=== PATIENT | male | born 1935 | race Caucasian/White ===

== ENCOUNTER 2020-12-12 15:30 | Emergency (ER) | payer OTHER, SELFPAY ==
--- NOTE | ~2020-12-12 | CT_ITS ---
EXAMINATION: CT HEAD WITHOUT CONTRAST CLINICAL INFORMATION: Near syncope, dizziness, vomiting COMPARISON: None TECHNIQUE: Contiguous axial imaging was performed from the skull base to vertex without intravenous administration of contrast. This CT examination was performed using dose optimization techniques as appropriate, variously including the following: *Automated exposure control *Adjustment of mA and/or kV according to patient size (this includes techniques or standardized protocols for targeted exams where dose is matched to indication/reason for exam; i.e. extremities or head) *Use of iterative reconstruction technique DLP: 790 mGy-cm FINDINGS: There is no evidence of acute intracranial hemorrhage or territorial infarction. No abnormal mass effect or midline shift is seen. [place] to white matter differentiation is well preserved. No extra-axial fluid collections are identified. The ventricles are normal in size. There is no abnormal attenuation within the brain parenchyma. The osseous structures and soft tissues are normal. The mastoid air cells and visualized portions of the paranasal sinuses are well aerated. CT/CT head/brain wo con IMPRESSION: No acute intracranial pathology.
[2020-12-12 15:46] VITALS: BP 166/88; PULSE 82; O2SAT 97
[2020-12-12 15:59] VITALS: BP 146/67; PULSE 69; RESP 18; TEMP 36.6; O2SAT 98; BMI 24.8
--- NOTE | 2020-12-12 15:59 | ECG_ITS ---
Test Reason : dizzyness Blood Pressure : / mmHG Vent. Rate : 069 BPM Atrial Rate : 069 BPM P-R Int : 230 ms QRS Dur : 090 ms QT Int : 406 ms P-R-T Axes : 045 -16 054 degrees QTc Int : 435 ms Sinus rhythm with 1st degree A-V block with occasional Premature ventricular complexes Minimal voltage criteria for LVH, may be normal variant ( R in aVL ) Abnormal ECG No previous ECGs available Referred By: Yany Ricketts Electronically Signed By:ROSALINDA PANDYA MD
--- NOTE | 2020-12-12 16:00 | ED_ITS ---
HPI - Dizziness General Chief Complaint: Nausea/Vomiting/Diarrhea <SUMANTH Toney Last Filed: 12/12/20 16:52> Stated Complaint: Dizziness and vomiting <SUMANTH Toney Last Filed: 12/12/20 16:52> Time Seen by Provider: 12/12/20 15:44 <SUMANTH Toney Last Filed: 12/12/20 16:52> Source: patient and EMS <SUMANTH Toney Last Filed: 12/12/20 16:52> Mode of arrival: EMS <SUMANTH Toney Last Filed: 12/12/20 16:52> Limitations: no limitations <SUMANTH Toney Last Filed: 12/12/20 16:52> History of Present Illness HPI Narrative: 85 y/o male with history of HTN, BPH, HLD who presents to the ER via EMS after he had acute onset of dizziness and not feeling well while he was standing and looking at books at the library. He reports after walking around the library for 15 minutes or so he all off the sudden felt dizzy, lightheaded, and nauseous. He felt unsteady and closed his eyes. EMS was called and he was diaphoretic and vomited. He was given Zofran and IVF en route and felt much better. He denies any prior episodes like this before. He took all of his morning medications as directed. He ate a late breakfast but did not eat lunch. <SUMANTH Toney Last Filed: 12/12/20 16:52> MD elicited complaint: dizziness, lightheadedness and near syncope <SUMANTH Toney Last Filed: 12/12/20 16:52> Onset (ago): minute(s) <SUMANTH Toney Last Filed: 12/12/20 16:52> Timing: sudden onset <SUMANTH Toney Last Filed: 12/12/20 16:52> Severity: severe <SUMANTH Toney Last Filed: 12/12/20 16:52> Description: lightheadedness, off-balance and near-syncope <SUMANTH Toney Last Filed: 12/12/20 16:52> History of similar symptoms: No <SUMANTH Toney Last Filed: 12/12/20 16:52> Exacerbating factors: movement/ambulation and change in body position <SUMANTH Toney Last Filed: 12/12/20 16:52> Relieving factors: rest and keeping eyes closed <SUMANTH Toney Last Filed: 12/12/20 16:52> Associated symptoms: nausea, vomiting, diaphoresis and weakness <SUMANTH Toney Last Filed: 12/12/20 16:52> Related Data Home Medications: Home Medications Medication Instructions Recorded Confirmed diltiazem HCl 180 mg 180 mg PO DAILY 12/12/20 12/12/20 capsule,extended release 24 hr (Cardizem CD) ferrous sulfate 325 mg (65 mg 325 mg PO DAILY 12/12/20 12/12/20 iron) tablet finasteride 5 mg tablet 5 mg PO DAILY 12/12/20 12/12/20 gemfibrozil 600 mg tablet 600 mg PO BID 12/12/20 12/12/20 hydrochlorothiazide 25 mg tablet 25 mg PO DAILY 12/12/20 12/12/20 losartan 25 mg tablet 25 mg PO BID 12/12/20 12/12/20 multivitamin 1 tab PO DAILY 12/12/20 12/12/20 omega-3 fatty acids-vitamin E 1 cap PO BID 12/12/20 12/12/20 1,000 mg capsule <SUMANTH Toney Last Filed: 12/12/20 16:52> Allergies/Adverse Reactions: Allergies Allergy/AdvReac Type Severity Reaction Status Date / Time Unable to Assess Allergy Unverified 12/12/20 15:59 <SUMANTH Toney Last Filed: 12/12/20 16:52> Review of Systems Review of Systems: Constitutional: No Fever, No Chills ENT/Mouth: No sore throat, No Rhinorrhea, No Swallowing Difficulty Eyes: No Eye Pain, No Swelling, No Redness, No vision changes Cardiovascular: No Chest Pain, No SOB, No Orthopnea, No Edema Respiratory: No Cough, No Sputum, No Wheezing, No dyspnea Gastrointestinal: + Nausea, + Vomiting, No Diarrhea, No abdominal Pain Genitourinary: No Dysuria, No Urinary Frequency, No Hematuria Musculoskeletal: No joint pain, No Myalgias Skin: No Skin Lesions, No rash Neuro: + Weakness (generalized), No Numbness, + Dizziness, No Headache Psych: No Anxiety/Panic, No Depression Heme/Lymph: No Bruising, No Lymphadenopathy Endocrine: No Polyuria, No Polydipsia <SUMANTH Toney - Last Filed: 12/12/20 16:52> [facility] Past Medical History Medical History: Medical History (Updated 12/12/20 @ 16:52 by SUMANTH Toney) HTN (hypertension) <SUMANTH Toney - Last Filed: 12/12/20 16:52> Social History Social History: Social History Alcohol intake: never Patient Tobacco Use Status: Never used Tobacco Use of substances other than those prescribed or required for medical reasons: No Advance Directives: No Advance Directives Information Provided: No <SUMANTH Toney - Last Filed: 12/12/20 16:52> Physical Exam Vital Signs: Vital Signs: Last Vital Signs Temp 98.3 F 12/12/20 19:24 Pulse 66 12/12/20 19:24 Resp 14 12/12/20 19:24 BP 165/71 H 12/12/20 19:24 Pulse Ox 98 12/12/20 19:24 Body Mass Index 24.8 <SUMANTH Toney - Last Filed: 12/12/20 16:52> Vital Signs: Last Vital Signs Temp 98.3 F 12/12/20 19:24 Pulse 66 12/12/20 19:24 Resp 14 12/12/20 19:24 BP 165/71 H 12/12/20 19:24 Pulse Ox 98 12/12/20 19:24 Body Mass Index 24.8 <SUMANTH Carreon - Last Filed: 12/12/20 20:57> Appearance: Alert. Oriented X3. No acute distress. Eyes: Pupils equal, round and reactive to light. ENT: Pharynx normal. Neck: Normal inspection. Neck supple. CVS: Normal heart rate and rhythm. Pulses normal. Respiratory: No respiratory distress. Breath sounds normal. Abdomen: Soft and nontender. +BS x4 Skin: Skin warm and dry. Normal skin color. Normal skin turgor. No rashes. Extremities: No lower extremity edema. Neuro: Oriented X 3. No motor deficit. No sensory deficit. Nonfocal, Equal and symmetrical strength throughout. Normal heel to strong and finger to nose bilaterally. <SUMANTH Toney - Last Filed: 12/12/20 16:52> NIH Stroke Scale Internal: Initial- Upon Arrival <SUMANTH Toney - Last Filed: 12/12/20 16:52> Level of Consciousness: Alert <SUMANTH Toney - Last Filed: 12/12/20 16:52> Level of Consciousness Questions: Answers both questions correctly <SUMANTH Toney - Last Filed: 12/12/20 16:52> Level of Consciousness Commands: Performs both tasks correctly <SUMANTH Toney - Last Filed: 12/12/20 16:52> Best Gaze: Normal <SUMANTH Toney - Last Filed: 12/12/20 16:52> Visual: No visual loss <SUMANTH Toney - Last Filed: 12/12/20 16:52> Facial Palsy: Normal <SUMANTH Toney - Last Filed: 12/12/20 16:52> Motor Arm (Right): No drift <SUMANTH Toney - Last Filed: 12/12/20 16:52> Motor Arm (Left): No drift <SUMANTH Toney - Last Filed: 12/12/20 16:52> Motor Leg (Right): No drift <SUMANTH Toney - Last Filed: 12/12/20 16:52> Motor Leg (Left): No drift <SUMANTH Toney - Last Filed: 12/12/20 16:52> Limb Ataxia: Absent <SUMANTH Toney - Last Filed: 12/12/20 16:52> Sensory: Normal <SUMANTH Toney - Last Filed: 12/12/20 16:52> Best Language: No aphasia <SUMANTH Toney - Last Filed: 12/12/20 16:52> Dysarthia: Normal <SMUANTH Toney - Last Filed: 12/12/20 16:52> Extinction and Inattention: No abnormality <SUMANTH Toney - Last Filed: 12/12/20 16:52> Score: 0 <SUMANTH Toney Last Filed: 12/12/20 16:52> 0 <SUMANTH Carreon Last Filed: 12/12/20 20:57> Course Course Course Narrative: 85-year-old male with history of hypertension, hyperlipidemia and BPH presents to the ER with acute onset of dizziness, nausea, diaphoresis and vomiting while standing at the library today. Clinical presentation consistent with presyncope. May need to rule out posterior stroke, his neuro exam is completely nonfocal at this time however he does still have some ongoing dizziness when he sits up and does not feel well. Will check orthostatic vital signs basic lab workup, head CT, EKG. Dispo pending results and improvement. <SUMANTH Toney Last Filed: 12/12/20 16:52> Reevaluation(s) Reevaluation #1: Orthostatic vital signs are negative. Troponin is negative. EKG does not show any ischemic changes. Rest of his workup is pending including his head CT. Will sign out to Dorina Gonzalez PA-C who will assume care. <SUMANTH Toney Last Filed: 12/12/20 16:52> Reevaluation #2: Head CT unremarkable. On my re-evaluation patient reports symptomatic improvement, denies lightheadedness/dizziness now, denies headache, CP/SOB. Discussed with patient recommended admission for likely MRI in the morning, patient would like to go home, is not agreeable to admission, however is agreeable to repeat troponin to rule out ACS. Plan to repeat troponin at 7:18 p.m. and ambulate in the ED, if negative/ambulates safely will DC home with PCP follow-up <SUMANTH Carreon Last Filed: 12/12/20 20:57> Time: 18:06 <SUMANTH Carreon Last Filed: 12/12/20 20:57> Reevaluation #3: Repeat troponin 8.4, technically 50% rise, case discussed with cardiology Dr. Lewis, PA unlikely. Case discussed with hospitalist for admission, hospitalist evaluated patient, and do not deem admission necessary at this time. Patient is asymptomatic, reports symptomatic improvement since ED arrival, feels safe for discharge home at this time <SUMANTH Carreon Last Filed: 12/12/20 20:57> Time: 20:54 <SUMANTH Carreon - Last Filed: 12/12/20 20:57> MDM - Dizziness Lab Data Attestation: I reviewed the patient's lab results. <SUMANTH Toney - Last Filed: 12/12/20 16:52> Result diagrams: : 12/12/20 16:18 12/12/20 16:18 <SUMANTH Toney - Last Filed: 12/12/20 16:52> Labs: Lab Results 12/12/20 12/12/20 12/12/20 Range/Units 16:18 16:18 16:18 WBC 6.6 (4.8-10.8) X10*3/uL RBC 4.25 L (4.60-5.80) X10*6/uL Hgb 12.7 L (14.0-18.0) g/dl Hct 37.6 L (42-52) % MCV 88.5 (80-98) fL MCH 29.9 (27.0-33.0) pg MCHC 33.8 (31.0-36.0) g/dl RDW 13.1 (11.0-16.0) % Plt Count 294 (160-400) X10*3/uL MPV 9.1 L (9.4-12.4) fL Immature Gran % (Auto) 0.6 H (0.0-0.4) % Neut % (Auto) 63.5 (45-73) % Lymph % (Auto) 24.7 (20-40) % [place] % (Auto) 7.8 (2-11) % Eos % (Auto) 2.9 (0-4) % Baso % (Auto) 0.5 (0-2) % Lymph # (Auto) 1.6 (1.2-4.9) X10*3/uL [place] # (Auto) 0.5 (0.1-1.2) X10*3/uL Eos # (Auto) 0.2 (0.0-0.4) X10*3/uL Baso # (Auto) 0.0 (0.0-0.2) X10*3/uL Abs Immat Gran (auto) 0.04 H (0.00-0.03) X10*3/uL Absolute Neuts (auto) 4.2 (2.0-8.3) X10*3/uL Absolute Nucleated RBC 0.000 (0.0-0.012) X10*3/uL Nucleated RBC % (auto) 0.0 (0.0-0.2) /100WBC Sodium 143 (135-145) mmol/L Potassium 3.4 (3.3-5.1) mmol/L Chloride 107 (96-108) mmol/L Carbon Dioxide 26 (22-29) mmol/L Anion Gap 13 (12-20) BUN 26 H (9-16) mg/dL Creatinine 1.27 (0.5-1.4) mg/dL Estim Creat Clear Calc 45.2 Estimated GFR 54 Random Glucose 114 (60-115) mg/dL Calcium 9.3 (8.4-10.2) mg/dL Magnesium 2.2 (1.6-2.6) mg/dL Total Bilirubin 0.3 (0.0-1.0) mg/dL Direct Bilirubin 0.2 (0.0-0.5) mg/dL AST 17 (5-37) U/L ALT 11 (0-40) U/L Alkaline Phosphatase 79 (39-117) U/L Troponin I High Sens 4.9 (<3.5-35.0) ng/L Total Protein 6.5 (6.5-8.0) g/dL Albumin 4.2 (3.5-5.0) g/dL Urine Color Urine Appearance Urine pH (5.0-8.0) Ur Specific [place] (1.005-1.025) Urine Protein (NEG-TRACE) MG/DL Urine Glucose (UA) (NEG) MG/DL Urine Ketones (NEG) MG/DL Urine Blood (NEG) Urine Nitrite (NEG) Ur Leukocyte Esterase (NEG) Urine RBC (0) /HPF Urine WBC (0-4) /HPF Ur Squamous Epith Cells /LPF Urine Bacteria /LPF Urine Mucus /LPF COVID-19 (KRISTOPHER) (Negative) COVID-19 Clin Com 12/12/20 12/12/20 12/12/20 Range/Units 16:34 16:34 19:23 WBC (4.8-10.8) X10*3/uL RBC (4.60-5.80) X10*6/uL Hgb (14.0-18.0) g/dl Hct (42-52) % MCV (80-98) fL MCH (27.0-33.0) pg MCHC (31.0-36.0) g/dl RDW (11.0-16.0) % Plt Count (160-400) X10*3/uL MPV (9.4-12.4) fL Immature Gran % (Auto) (0.0-0.4) % Neut % (Auto) (45-73) % Lymph % (Auto) (20-40) % [place] % (Auto) (2-11) % Eos % (Auto) (0-4) % Baso % (Auto) (0-2) % Lymph # (Auto) (1.2-4.9) X10*3/uL [place] # (Auto) (0.1-1.2) X10*3/uL Eos # (Auto) (0.0-0.4) X10*3/uL Baso # (Auto) (0.0-0.2) X10*3/uL Abs Immat Gran (auto) (0.00-0.03) X10*3/uL Absolute Neuts (auto) (2.0-8.3) X10*3/uL Absolute Nucleated RBC (0.0-0.012) X10*3/uL Nucleated RBC % (auto) (0.0-0.2) /100WBC Sodium (135-145) mmol/L Potassium (3.3-5.1) mmol/L Chloride (96-108) mmol/L Carbon Dioxide (22-29) mmol/L Anion Gap (12-20) BUN (9-16) mg/dL Creatinine (0.5-1.4) mg/dL Estim Creat Clear Calc Estimated GFR Random Glucose (60-115) mg/dL Calcium (8.4-10.2) mg/dL Magnesium (1.6-2.6) mg/dL Total Bilirubin (0.0-1.0) mg/dL Direct Bilirubin (0.0-0.5) mg/dL AST (5-37) U/L ALT (0-40) U/L Alkaline Phosphatase (39-117) U/L Troponin I High Sens 8.4 D (<3.5-35.0) ng/L Total Protein (6.5-8.0) g/dL Albumin (3.5-5.0) g/dL Urine Color YELLOW Urine Appearance HAZY Urine pH 7.0 (5.0-8.0) Ur Specific [place] 1.015 (1.005-1.025) Urine Protein NEG (NEG-TRACE) MG/DL Urine Glucose (UA) NEG (NEG) MG/DL Urine Ketones NEG (NEG) MG/DL Urine Blood 1+ H (NEG) Urine Nitrite NEG (NEG) Ur Leukocyte Esterase NEG (NEG) Urine RBC 5-9 H (0) /HPF Urine WBC 0 (0-4) /HPF Ur Squamous Epith Cells TRACE /LPF Urine Bacteria NONE /LPF Urine Mucus TRACE /LPF COVID-19 (KRISTOPHER) Negative (Negative) COVID-19 Clin Com See Note <SUMANTH Toney - Last Filed: 12/12/20 16:52> Lab Results 12/12/20 12/12/20 12/12/20 Range/Units 16:18 16:18 16:18 WBC 6.6 (4.8-10.8) X10*3/uL RBC 4.25 L (4.60-5.80) X10*6/uL Hgb 12.7 L (14.0-18.0) g/dl Hct 37.6 L (42-52) % MCV 88.5 (80-98) fL MCH 29.9 (27.0-33.0) pg MCHC 33.8 (31.0-36.0) g/dl RDW 13.1 (11.0-16.0) % Plt Count 294 (160-400) X10*3/uL MPV 9.1 L (9.4-12.4) fL Immature Gran % (Auto) 0.6 H (0.0-0.4) % Neut % (Auto) 63.5 (45-73) % Lymph % (Auto) 24.7 (20-40) % [place] % (Auto) 7.8 (2-11) % Eos % (Auto) 2.9 (0-4) % Baso % (Auto) 0.5 (0-2) % Lymph # (Auto) 1.6 (1.2-4.9) X10*3/uL [place] # (Auto) 0.5 (0.1-1.2) X10*3/uL Eos # (Auto) 0.2 (0.0-0.4) X10*3/uL Baso # (Auto) 0.0 (0.0-0.2) X10*3/uL Abs Immat Gran (auto) 0.04 H (0.00-0.03) X10*3/uL Absolute Neuts (auto) 4.2 (2.0-8.3) X10*3/uL Absolute Nucleated RBC 0.000 (0.0-0.012) X10*3/uL Nucleated RBC % (auto) 0.0 (0.0-0.2) /100WBC Sodium 143 (135-145) mmol/L Potassium 3.4 (3.3-5.1) mmol/L Chloride 107 (96-108) mmol/L Carbon Dioxide 26 (22-29) mmol/L Anion Gap 13 (12-20) BUN 26 H (9-16) mg/dL Creatinine 1.27 (0.5-1.4) mg/dL Estim Creat Clear Calc 45.2 Estimated GFR 54 Random Glucose 114 (60-115) mg/dL Calcium 9.3 (8.4-10.2) mg/dL Magnesium 2.2 (1.6-2.6) mg/dL Total Bilirubin 0.3 (0.0-1.0) mg/dL Direct Bilirubin 0.2 (0.0-0.5) mg/dL AST 17 (5-37) U/L ALT 11 (0-40) U/L Alkaline Phosphatase 79 (39-117) U/L Troponin I High Sens 4.9 (<3.5-35.0) ng/L Total Protein 6.5 (6.5-8.0) g/dL Albumin 4.2 (3.5-5.0) g/dL Urine Color Urine Appearance Urine pH (5.0-8.0) Ur Specific [place] (1.005-1.025) Urine Protein (NEG-TRACE) MG/DL Urine Glucose (UA) (NEG) MG/DL Urine Ketones (NEG) MG/DL Urine Blood (NEG) Urine Nitrite (NEG) Ur Leukocyte Esterase (NEG) Urine RBC (0) /HPF Urine WBC (0-4) /HPF Ur Squamous Epith Cells /LPF Urine Bacteria /LPF Urine Mucus /LPF COVID-19 (KRISTOPHER) (Negative) COVID-19 Clin Com 12/12/20 12/12/20 12/12/20 Range/Units 16:34 16:34 19:23 WBC (4.8-10.8) X10*3/uL RBC (4.60-5.80) X10*6/uL Hgb (14.0-18.0) g/dl Hct (42-52) % MCV (80-98) fL MCH (27.0-33.0) pg MCHC (31.0-36.0) g/dl RDW (11.0-16.0) % Plt Count (160-400) X10*3/uL MPV (9.4-12.4) fL Immature Gran % (Auto) (0.0-0.4) % Neut % (Auto) (45-73) % Lymph % (Auto) (20-40) % [place] % (Auto) (2-11) % Eos % (Auto) (0-4) % Baso % (Auto) (0-2) % Lymph # (Auto) (1.2-4.9) X10*3/uL [place] # (Auto) (0.1-1.2) X10*3/uL Eos # (Auto) (0.0-0.4) X10*3/uL Baso # (Auto) (0.0-0.2) X10*3/uL Abs Immat Gran (auto) (0.00-0.03) X10*3/uL Absolute Neuts (auto) (2.0-8.3) X10*3/uL Absolute Nucleated RBC (0.0-0.012) X10*3/uL Nucleated RBC % (auto) (0.0-0.2) /100WBC Sodium (135-145) mmol/L Potassium (3.3-5.1) mmol/L Chloride (96-108) mmol/L Carbon Dioxide (22-29) mmol/L Anion Gap (12-20) BUN (9-16) mg/dL Creatinine (0.5-1.4) mg/dL Estim Creat Clear Calc Estimated GFR Random Glucose (60-115) mg/dL Calcium (8.4-10.2) mg/dL Magnesium (1.6-2.6) mg/dL Total Bilirubin (0.0-1.0) mg/dL Direct Bilirubin (0.0-0.5) mg/dL AST (5-37) U/L ALT (0-40) U/L Alkaline Phosphatase (39-117) U/L Troponin I High Sens 8.4 D (<3.5-35.0) ng/L Total Protein (6.5-8.0) g/dL Albumin (3.5-5.0) g/dL Urine Color YELLOW Urine Appearance HAZY Urine pH 7.0 (5.0-8.0) Ur Specific [place] 1.015 (1.005-1.025) Urine Protein NEG (NEG-TRACE) MG/DL Urine Glucose (UA) NEG (NEG) MG/DL Urine Ketones NEG (NEG) MG/DL Urine Blood 1+ H (NEG) Urine Nitrite NEG (NEG) Ur Leukocyte Esterase NEG (NEG) Urine RBC 5-9 H (0) /HPF Urine WBC 0 (0-4) /HPF Ur Squamous Epith Cells TRACE /LPF Urine Bacteria NONE /LPF Urine Mucus TRACE /LPF COVID-19 (KRISTOPHER) Negative (Negative) COVID-19 Clin Com See Note <SUMANTH Carreon - Last Filed: 12/12/20 20:57> ECG Data Attestation: I personally reviewed and interpreted this ECG as follows: <SUMANTH Toney - Last Filed: 12/12/20 16:52> ECG interpretation date: 12/12/20 <SUMANTH Toney - Last Filed: 12/12/20 16:52> ECG interpretation time: 16:44 <SUMANTH Toney - Last Filed: 12/12/20 16:52> Interpretation: Sinus rhythm with first-degree AV block, HR 69 BPM, KS interval 230ms, occasional PVC's, no ST segment elevations or depression <SUMANTH Toney - Last Filed: 12/12/20 16:52> Discharge Plan Discharge Clinical Impression: Pre-syncope <SUMANTH Toney - Last Filed: 12/12/20 16:52> Patient Disposition: Home, Self-Care <SUMANTH Toney - Last Filed: 12/12/20 16:52> Instructions: Near Syncope (ED) <SUMANTH Toney - Last Filed: 12/12/20 16:52> Additional Instructions: Your blood work and head CT were reassuring today in the emergency department It is very important that you are staying hydrated at home Call your primary care doctor for close follow-up If her symptoms recur, persist, you develop lightheadedness, dizziness, shortness of breath, chest pain, nausea, or vomiting return to the ED immediately <SUMANTH Toney - Last Filed: 12/12/20 16:52> Prescriptions: No Action diltiazem HCl [Cardizem CD] 180 mg Capsule,Extended Release 24hr 180 mg PO DAILY RF: 0 gemfibrozil 600 mg Tablet 600 mg PO BID RF: 0 losartan 25 mg Tablet 25 mg PO BID RF: 0 hydrochlorothiazide 25 mg Tablet 25 mg PO DAILY RF: 0 finasteride 5 mg Tablet 5 mg PO DAILY RF: 0 multivitamin [Multi-Daily] Tablet 1 tab PO DAILY RF: 0 ferrous sulfate 325 mg (65 mg iron) Tablet 325 mg PO DAILY RF: 0 Fish Oil 1,000 mg Capsule 1 cap PO BID RF: 0 <SUMANTH Toney - Last Filed: 12/12/20 16:52> Referrals: Branden Johnson MD [Primary Care Provider] - 2 days <SUMANTH Toney - Last Filed: 12/12/20 16:52>
[2020-12-12] MEDS: 0.9 % Sodium Chloride 1,000 ML 999 ML IVCONT (16:21)
[2020-12-12 16:26] LABS: MANUAL DIFF FLAG NO
[2020-12-12 16:27] LABS: Basophils Percent Auto 0.5 % (0-2); Eosinophils Absolute Auto 0.2 X10*3/uL (0.0-0.4); Eosinophils Percent Auto 2.9 % (0-4); Hematocrit 37.6 % (42-52); Hemoglobin 12.7 g/dl (14.0-18.0); Imm Gran Abs Auto 0.04 X10*3/uL (0.00-0.03); Imm Gran Pct Auto 0.6 % (0.0-0.4); Lymphocytes Absolute Auto 1.6 X10*3/uL (1.2-4.9); Lymphocytes Percent Auto 24.7 % (20-40); Mean Corpuscular HGB Conc 33.8 g/dl (31.0-36.0); Mean Corpuscular Hemoglobin 29.9 pg (27.0-33.0); Mean Corpuscular Volume 88.5 fL (80-98); Mean Platelet Volume 9.1 fL (9.4-12.4); Monocytes Absolute Auto 0.5 X10*3/uL (0.1-1.2); Monocytes Percent Auto 7.8 % (2-11); Neutrophils Absolute Auto 4.2 X10*3/uL (2.0-8.3); Neutrophils Percent Auto 63.5 % (45-73); Platelet Count 294 X10*3/uL (160-400); Red Blood Count 4.25 X10*6/uL (4.60-5.80); Red Cell Distribution Width 13.1 % (11.0-16.0); White Blood Count 6.6 X10*3/uL (4.8-10.8)
[2020-12-12 16:37] VITALS: BP 142/68; PULSE 72
[2020-12-12 16:38] VITALS: BP 153/74; BP 156/75; PULSE 75; PULSE 82
[2020-12-12 16:40] VITALS: BP 142/68; PULSE 76; RESP 16; TEMP 36.6; O2SAT 97
[2020-12-12 16:42] LABS: Alanine Aminotransferase 11 U/L (0-40); Albumin Level 4.2 g/dL (3.5-5.0); Alkaline Phosphatase 79 U/L (39-117); Anion Gap 13 (12-20); Aspartate Amino Transferase 17 U/L (5-37); Bilirubin Direct 0.2 mg/dL (0.0-0.5); Bilirubin Total 0.3 mg/dL (0.0-1.0); Blood Urea Nitrogen 26 mg/dL (9-16); Calcium 9.3 mg/dL (8.4-10.2); Carbon Dioxide 26 mmol/L (22-29); Chloride 107 mmol/L (96-108); Creatinine Clr Calc Pharmacy 45.2; Estimated Glomerular Filt Rate 54; Glucose Random 114 mg/dL (60-115); Magnesium 2.2 mg/dL (1.6-2.6); Potassium 3.4 mmol/L (3.3-5.1); Sodium 143 mmol/L (135-145); Total Protein 6.5 g/dL (6.5-8.0)
[2020-12-12 16:46] LABS: Troponin-I High Sensitivity 4.9 ng/L (<3.5-35.0)
[2020-12-12 16:46] LABS: Appearance Urine HAZY; Color Urine YELLOW; Glucose Urine UA NEG (NEG); Leukocyte Esterase Urine NEG (NEG); Nitrite Urine NEG (NEG); Specific Gravity - Urine 1.015 (1.005-1.025); UACC Culture Trigger NO; Urine Blood 1+ (NEG); Urine Ketones NEG (NEG); Urine Protein NEG (NEG-TRACE)
[2020-12-12 16:55] LABS: Mucus Urine TRACE /LPF; Squamous Epithelial Cell Urine TRACE /LPF
[2020-12-12 16:56] LABS: WBC Urine 0 /HPF (0-4)
[2020-12-12 17:02] LABS: COVID-19 Test Negative (Negative)
[2020-12-12 19:24] VITALS: BP 165/71; PULSE 66; RESP 14; TEMP 36.8; O2SAT 98
[2020-12-12 19:55] LABS: Troponin-I High Sensitivity 8.4 ng/L (<3.5-35.0)
--- NOTE | 2020-12-12 21:11 | PM.EVENT ---
Event Note Date of Service: 12/12/20 Event Note: Asked to admit this pleasant 85-year-old male for presyncope. 85-year-old male with past medical history of hyperlipidemia as well as hypertension who presents to the hospital after a presyncopal episode. Patient reports that he went for a 2 mi walk which ended up leading him to the library, he was walking around the library about 15-20 minutes, standing and looking at books when all of a sudden he became diaphoretic, dizzy, had nausea and 1 episode of vomiting and therefore called EMS. Patient denied having any chest pain, no palpitations, no loss of vision, no loss of consciousness, denies having any shortness of breath. Patient reports no numbness tingling or weakness in upper or lower extremities. Denies any previous similar episode. Patient reports that he usually bikes about 10-20 miles every other day with no chest pain or palpitations or any difficulty. He is usually very active and has not had any history of heart disease. Patient is a nonsmoker, denies using any alcohol or drugs. Patient reports that he did not eat anything from 9:00 a.m. and this occurred around 2-3 pm Patient's vitals unremarkable, with a blood pressure of 165/71, pulse of 66, satting 98% on room air Labs reviewed show no significant abnormality with no significant elevation in troponin, UA is negative, head CTs reviewed negative, EKG shows no ischemic changes or arrhythmia. Orthostatic vitals negative. After careful review of his vitals, labs, imaging, and EKG as well as based on patient's wishes I do not feel that the patient needs admission and recommended follow-up with his PCP as soon as possible which patient is agreeable to. I discussed this with the ED
== END 2020-12-12 21:13 | disposition home or self-care (01) ==
PROVIDERS: Physician Assistant; Emergency Provider Emergency Medicine; PCP Internal Medicine
DX: R55 Syncope and collapse (principal); R42 Dizziness and giddiness; R11.2 Nausea with vomiting, unspecified; I10 Essential (primary) hypertension; Z20.822 Contact with and (suspected) exposure to COVID-19; Z79.899 Other long term (current) drug therapy
CPT/HCPCS: 36415; 70450; 80048; 80076; 81001; 83735; 84484; 85025; 87635; 93005; 96360; 99284; 99285